=== PATIENT | female | born 1995 | race Caucasian/White ===

== ENCOUNTER 2017-07-18 18:49 | Emergency (ER) | payer OTHER ==
[~2017-07-18] VITALS: Ht 165.1 cm; Wt 57.6 kg
[~2017-07-18 18:49] MED LIST: ARIP10 PO; DIVA250EC PO; LITH300C PO
[2017-07-18] MEDS ORDERED: PAROEX473 ML MM (19:27)
[2017-07-18] MEDS ORDERED: Amoxicillin500 MG PO (19:27)
[2017-07-18] MEDS ORDERED: PROBIOTIC1 EAC1 PO (19:27)
== END 2017-07-18 19:37 | disposition home or self-care (01) ==
LOC: ER 18:49
DX: K08.89 Other specified disorders of teeth and supporting structures (principal)

== ENCOUNTER → 2020-09-25 | Outpatient (CLI) | payer OTHER ==
[~2020-09-25] MED LIST changes: +Amoxicillin500 MG PO; +PAROEX473 ML MM; +PROBIOTIC1 EAC1 PO
[2020-09-27 13:10] LABS: HPV 16 Negative (Negative); HPV 18 Negative (Negative); HPV OTHER HR TYPES Negative (Negative)
[2020-09-28 06:16] LABS: CHLAMYDIA TRACHOMATIS, NAA Negative (Negative)
== END ==
LOC: LAB SHORT 14:30 → LAB 14:30
PROVIDERS: Student in an Organized Health Care Education/Training Program
DX: Z01.419 Encounter for gynecological examination (general) (routine) without abnormal findings (principal)
CPT/HCPCS: 87070; 87205; 87491; 87591; 87624; G0123

== ENCOUNTER → 2021-10-10 | Outpatient (CLI) | payer OTHER | END | disposition home or self-care (01) | LOC: LAB 15:30 → LAB SHORT 15:30 | DX: N91.2 Amenorrhea, unspecified (principal) | CPT/HCPCS: 84702 ==

== ENCOUNTER → 2021-12-10 | Outpatient (CLI) | payer OTHER | LOC: LAB 18:55 → LAB SHORT 18:55 | DX: R35.0 Frequency of micturition (principal) | CPT/HCPCS: 87077; 87086; 87186 ==